=== PATIENT | female | born 1965 | race Asian ===

== ENCOUNTER 2018-02-28 07:49 | Emergency (ER) | payer OTHER ==
[~2018-02-28] VITALS: Ht 157.5 cm; Wt 52.2 kg
[2018-02-28 07:49] VITALS: BP 105/75
[~2018-02-28 07:49] MED LIST: SERT20OR PO
== END 2018-02-28 08:49 | disposition home or self-care (01) ==
LOC: ER 07:53
DX: S99.811A Other specified injuries of right ankle, initial encounter (principal); G43.909 Migraine, unspecified, not intractable, without status migrainosus; F32.9 Major depressive disorder, single episode, unspecified; Z91.013 Allergy to seafood; X50.1XXA Overexertion from prolonged static or awkward postures, initial encounter; Y93.89 Activity, other specified; Y92.89 Other specified places as the place of occurrence of the external cause; Y99.8 Other external cause status
CPT/HCPCS: 73610; 99283; A4606; Z7610